=== PATIENT | female | born 1970 | race Caucasian/White ===

== ENCOUNTER 2017-04-20 13:25 | Outpatient (CLI) | payer MEDICAID ==
[2016-07-01 06:37] VITALS: BMI 23.3
[~2017-04-20 13:25] MED LIST: CETIRIZINE HCL5 MG PO; COLACE100 MG PO; LEVOXYL75 MCG PO; MOTRIN600 MG PO; PERCOCET 10/3251 TA1 PO; PROAIR HFA8.5 GM INH
== END 2017-04-20 14:21 ==
LOC: D.MAMMO 13:25
DX: D48.62 Neoplasm of uncertain behavior of left breast (principal)

== ENCOUNTER → 2017-06-02 12:53 | Outpatient (CLI) | payer MEDICAID ==
[2016-07-01 06:37] VITALS: BMI 23.3
== END | disposition home or self-care (01) ==
LOC: D.US 12:53
DX: N63 Unspecified lump in breast (principal)

== ENCOUNTER 2017-06-23 05:11 | Day surgery (SDC) | payer MEDICAID ==
[2017-06-22 14:07] LABS: HEMATOCRIT 40.1 % (36.0-48.0); HEMOGLOBIN 13.8 g/dL (12-16); MCH 32.4 pg (26.0-34.0); MCHC 34.4 g/dL (31.0-37.0); MCV 94.1 fL (80.0-100.0); RBC 4.26 10x6/uL (4.00-5.40); RDW 12.2 % (11.5-14.5); WBC 9.2 10x3/uL (4.8-10.8)
[~2017-06-23] VITALS: Ht 165.1 cm; Wt 59.0 kg
--- NOTE | ~2017-06-23 | OP ---
PATIENT NAME: VERNA BENAVIDES MEDICAL RECORD: [id number] :70 LOCATION:D[facility] ADMISSION DATE: SURGEON: EMILY POWELL DPM DATE OF OPERATION: 06/23/2017 PREOPERATIVE DIAGNOSES: 1. Instability first metatarsal cuneiform joint, left foot. 2. Hallux abductovalgus, left foot. POSTOPERATIVE DIAGNOSES: 1. Instability first metatarsal cuneiform joint, left foot. 2. Hallux abductovalgus, left foot. PROCEDURE: 1. Thompson bunionectomy, left foot. 2. First met cuneiform joint fusion, left foot. ANESTHESIA: General with local infiltrate utilizing 20 cc of lidocaine and Marcaine plain on the forefoot as well as a block at the tibial artery at the ankle joint. HEMOSTASIS: Left thigh tourniquet at 350 mmHg. PREOPERATIVE DETAILS: The patient was taken to the OR and placed on the operating table in a supine position. This was followed by induction of general anesthesia and infiltration of local anesthetic. The left extremity was then prepped and draped in the usual aseptic technique followed by exsanguination of extremity and inflation of tourniquet. PROCEDURE #1: Thompson bunionectomy, left foot. A 15-blade was used to create an incision from the medial cuneiform distally to the dorsal aspect of the proximal aspect of the hallux. The incision deepened down through subcutaneous tissue to the first MPJ where an inverted L capsulotomy was performed. The medial capsular flap was reflected and the head of the first metatarsal was delivered. A sagittal saw was used to resect the medial eminence. Attention was directed to the first interspace where a lateral release was performed. Good clinical reduction of lateral contractures was verified. PROCEDURE #2: First met cuneiform joint fusion, left foot. Utilizing the incision as described above. The dissection was carried down to the periosteum. The first met cuneiform joint was exposed. A sagittal saw was then used to resect the joint followed by temporary K-wire fixation, noting excellent alignment. At this time, a plate and screws were placed on the fusion site with one screw crossing the fusion site in a compression technique. Following application of the hardware, C-arm was used to verify good placement of the hardware as well as alignment of the first ray. A small amount of bone graft from the joint excision was used to backfill. I do some gapping in the lateral aspect of the osteotomy. The wound was flushed. The first MPJ was repaired with 2-0 Vicryl as well as repair of the periosteum and deep tissue followed by closure of the subcutaneous tissue with 4-0 Rapide. The skin was then closed with 4-0 Rapide in a subcuticular technique followed by Dermabond, Adaptic, 4 x 4 and Conform were used to dress the wound followed by application of a modified Johnson compression dressing. Tourniquet was deflated. POSTOPERATIVE DETAILS: The patient tolerated the procedure well and left the OR OPERATIVE REPORT [id number] KENNEDYVERNA Oneil with vital signs stable and vascular status at preop levels. The patient was transported to recovery per anesthesia in stable condition. TRANSINT:[id number] Voice Confirmation ID: [id number] DOCUMENT ID: [id number] EMILY POWELL DPM CC: [id number] DICTATION DATE: 06/23/17804 MUSIC REHABILITATION THERAPIST: 06/23/17826 [facility] [address] [id number]
--- NOTE | ~2017-06-23 | OP ---
PATIENT NAME: VERNA BENAVIDES MEDICAL RECORD: [id number] :70 LOCATION:[facility] ADMISSION DATE: SURGEON: SUMMER DUGAN MD DATE OF OPERATION: 06/23/2017 PREOPERATIVE DIAGNOSIS: Left inferior breast fibroadenoma. POSTOPERATIVE DIAGNOSIS: Left inferior breast fibroadenoma. PROCEDURE: Excision of left breast fibroadenoma. SURGEON: Summer Dugan MD REPORT OF PROCEDURE: The patient's left breast was prepped and draped in sterile fashion. A transverse incision was made overlying the mass. Electrocautery was used to dissect through the subcutaneous tissues and around this palpable firm mass. Incorporating some of the surrounding fatty tissue, which was removed with the mass. The mass was removed in total and it measured approximately 2 cm in greatest diameter. Once the mass was released, we inspected the area and assured there was no sign of any active bleeding and any that was found was treated with electrocautery. We then irrigated out the wound thoroughly with normal saline. The subcutaneous tissues were reapproximated with interrupted 3-0 Vicryl and the skin was closed with running subcutaneous 5-0 Monocryl. The wound was then dressed appropriately. COMPLICATIONS: None. CONDITION: Stable. ANESTHESIA: General endotracheal. BLOOD LOSS: Minimal. TRANSINT:[id number] Voice Confirmation ID: [id number] DOCUMENT ID: [id number] SUMMER DUGAN MD CC: [id number] DICTATION DATE: 06/23/17 0746 CV/CVN CV TSC SYSTEM OPERATOR: 06/23/17 0857 [facility] [address] [place] [address]
[~2017-06-23 05:11] MED LIST changes: +ADVAIR 250/501 DISK INH; +CHANTIX0.5 MG PO; +LEXAPRO20 MG PO
[2017-06-23 05:49] VITALS: BP 113/72; Ht 165.1 cm; Wt 59.0 kg
--- NOTE | 2017-06-23 07:21 | NUR ---
NOT PRESENT TO PHIL BREAST PRIOR TO INDUCTION. PT MARKED HER OWN LEFT BREAST. SECOND TIMEOUT DONE AT [address] DUGAN MAKING THE INCISION AT O722.
--- NOTE | 2017-06-23 07:39 | NUR ---
STOP TIME FOR DR. DUGAN WAS 1635
== END 2017-06-23 09:50 | disposition home or self-care (01) ==
LOC: D.OPS 05:11 → D.PAN 07:00 → D.OPS 09:50
PROVIDERS: Anesthesiology
DX: D24.2 Benign neoplasm of left breast (principal); N60.12 Diffuse cystic mastopathy of left breast; N60.92 Unspecified benign mammary dysplasia of left breast; M25.375 Other instability, left foot; M20.12 Hallux valgus (acquired), left foot; Z01.812 Encounter for preprocedural laboratory examination